=== PATIENT | female | born 1990 | race Caucasian/White ===

== ENCOUNTER → 2016-12-19 | Outpatient (CLI) | payer OTHER ==
--- NOTE | 2016-12-20 11:17 | US ---
EXAMINATION TYPE: US pelvic complete DATE OF EXAM: 12/19/2016 4:37 PM COMPARISON: NONE CLINICAL HISTORY: Pelvic Pain R10.2, Z97.[address] TECHNIQUE: Transabdominal (TA) Date of LMP: 12/13/2016 EXAM MEASUREMENTS: Uterus: 6.9 x 3.6 x 5.4 cm Endometrial Stripe: 0.5 cm Right Ovary: 2.9 x 2.5 x 1.9 cm Left Ovary: 2.7 x 2.4 x 2.6 cm 1. Uterus: Anteverted wnl 2. Endometrium: IUD appears in place 3. Right Ovary: wnl 4. Left Ovary: wnl 5. Bilateral Adnexa: wnl 6. Posterior cul-de-sac: trace amount IMPRESSION: 1. IUD within the endometrial canal. 2. Normal pelvic ultrasound.
== END ==
LOC: RADUSWWP 16:21
PROVIDERS: ATTEND Obstetrics & Gynecology
DX: R10.2 Pelvic and perineal pain (principal); Z97.5 Presence of (intrauterine) contraceptive device
CPT/HCPCS: 76856

== ENCOUNTER 2017-06-15 08:22 | Day surgery (SDC) | payer OTHER ==
[2017-06-12 15:56] VITALS: BMI 22.3
--- NOTE | 2017-06-15 08:00 | P.HPOB ---
History of Present Illness H&P Date: 06/15/17 Chief Complaint: Family planning Elbert is a 26-year-old who has completed her family planning and desires permanent sterilization. Risks/benefits alternatives to this procedure were discussed with the patient in detail and all questions were answered for her prior to proceeding to the operative room. She is here for laps up tubal occlusion Filshie clips and will plan to remove her IUD at the same time. On physical exam vital signs are stable and afebrile. Heart regular, lungs clear, extremities without pain. Osteopathic exams unremarkable. Abdomen soft nontender positive bowel sounds are noted. Assessment family planning. Plan laparoscopic tubal occlusion with Filshie clips. Past Medical History Past Medical History: No Reported History History of Any Multi-Drug Resistant Organisms: None Reported Past Surgical History: No Surgical Hx Reported Past Anesthesia/Blood Transfusion Reactions: No Reported Reaction Additional Past Anesthesia/Blood Transfusion Reaction / Comment(s): no blood transfusion hx.no hx of general anesthesia Smoking Status: Current every day smoker - Past Family History Brother(s) Family Medical History: Asthma Medications and Allergies Home Medications Medication Instructions Recorded Confirmed Type Acetaminophen Tab [Tylenol] 500 mg PO Q4H PRN 09/03/15 06/12/17 History Ibuprofen [Motrin] 200 - 600 mg PO Q6HR PRN 06/12/17 06/12/17 History Allergies Allergy/AdvReac Type Severity Reaction Status Date / Time No Known Allergies Allergy Verified 06/12/17 15:50 Exam Osteopathic Statement: *. No significant issues noted on an osteopathic structural exam other than those noted in the History and Physical/Consult.
[~2017-06-15 08:22] MED LIST: DEXAMETHASONE SOD PHOSPHATE 10 MG/ML 1 ML VIAL IV ONE; LACTATED RINGERS 1,000 ML IV SCH; LIDOCAINE 1% 20 ML VIAL (10MG/ML) FOR IV START INTRADERMA PRN; MIDAZOLAM 2 MG/2 ML VIAL IV PRN; Pre Op ABX Message 1 EACH MISC MISCELLANE ONE; SCOPOLAMINE 1.5MG/72HR PATCH TRANSDERM ONE
[2017-06-15] MEDS: ONDANSETRON 4 MG/2 ML VIAL IVP ONE ×2 (09:05→11:50)
[2017-06-15] MEDS ORDERED: GLYCOPYRROLATE 0.2 MG/ML 2 ML VIAL ONE (09:27)
[2017-06-15] MEDS ORDERED: MIDAZOLAM 2 MG/2 ML VIAL ONE (09:27)
[2017-06-15] MEDS ORDERED: NEOSTIGMINE 1 MG/ML 10 ML VIAL ONE (09:27)
[2017-06-15] MEDS ORDERED: fentaNYL (PF) 50 MCG/ML 2 ML AMP ONE (09:27)
[2017-06-15] MEDS ORDERED: LIDOCAINE 1% INJ 10MG/ML (20 ML MDV) ONE (09:27)
[2017-06-15] MEDS ORDERED: SUCCINYLCHOLINE CHLORIDE 100 MG/5 ML SYR IV ONE (09:27)
[2017-06-15] MEDS ORDERED: PROPOFOL 10 MG/ML 20 ML VIAL IV ONE (09:27)
[2017-06-15] MEDS ORDERED: ROCURONIUM BROMIDE 10 MG/ML 10 ML VIAL IV ONE (09:27)
[2017-06-15] MEDS ORDERED: BUPIVACAINE (PF) 0.25% 30 ML VIAL SQ ONE ×3 (09:34→09:46)
[2017-06-15] MEDS ORDERED: LACTATED RINGERS 1,000 ML IV ONE (09:59)
--- NOTE | 2017-06-15 10:04 | P.OP ---
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 Fallopian tubes appeared normal. There is evidence of Mason Grimaldo Lincoln scarring on liver. Appendix and uterus otherwise grossly are normal. Description of Procedure: Patient was taken to the operating suite where a general anesthetic was found be adequate. She was prepped and draped in the normal sterile fashion and placed in dorsal lithotomy position. Initially a speculum was inserted into the vagina and the anterior lip of the cervix was grasped with an Allis clamp. Mirena IUD was removed then uterus was sounded to 7.5 cm and a manipulator was inserted without difficulty. Speculum and Allis clamp were removed and red rubber catheter was used to drain the bladder of urine. Once this was accomplished, gloves were changed and attention was turned to the abdominal portion of the procedure. Approximately 2 mL of quarter percent Marcaine was then injected periumbilically and through this injected anesthetic a 5 mm skin incision was made. Through this incision under direct visualization with an optical trocar and sleeve the camera was inserted. Once peritoneal placement was assured gas was allowed to fully insufflate the abdomen and patient was placed in steep Trendelenburg position. A second 8 mm skin incision was then made 3 cm above the pubic symphysis in the midline. Through this incision an 8 mm port and sleeve were inserted and observations the pelvis were noted as above. There was significant evidence of old PID infection with scarring of both ovaries to the lateral wall these were filmy and as she was not having any problems with them they were left alone. It is also noted that she had Mason- Yobany Lincoln adhesions on the liver. Again as this was not causing her any problems was no reason to excise the adhesions. She has no evidence of current pelvic inflammatory disease. Uterus and tubes otherwise appeared normal. At this point both the right tube than left tube had a Filshie clip applied 2 cm from uterine cornu. With no bleeding noted from the mesosalpinx instruments were then removed and gas was allowed to expel from the abdomen. There is also an incidental note of a small peritoneal defect where the right round ligament entered the abdomen. While gas was expelled from the abdomen 5 deep breaths were provided. 4-0 Vicryl was then used to close the the incisions subcuticularly. The remaining 8 mL of quarter percent Marcaine were then injected around these incisions. All instruments were then removed as was the manipulator. Sponge, lap, needle counts were all correct 2. Patient was then taken to the recovery room in stable and satisfactory condition. Plan - Discharge Summary New Discharge Prescriptions: New Ibuprofen [Motrin] 600 mg PO Q6HR PRN #30 tab PRN Reason: Pain No Action Acetaminophen Tab [Tylenol] 500 mg PO Q4H PRN PRN Reason: Pain Ibuprofen [Motrin] 200 - 600 mg PO Q6HR PRN PRN Reason: Pain Discharge Medication List Acetaminophen Tab [Tylenol] 500 mg PO Q4H PRN 09/03/15 [History] Ibuprofen [Motrin] 200 - 600 mg PO Q6HR PRN 06/12/17 [History] Ibuprofen [Motrin] 600 mg PO Q6HR PRN #30 tab 06/15/17 [Rx] Follow up Appointment(s)/Referral(s): Rayo Nelson DO [Doctor of Osteopathic Medicine] - 1 Week Activity/Diet/Wound Care/Special Instructions: No heavy lifting today, limit stairs and driving. Pelvic rest. If any high temperatures, heavy bleeding, or severe pain call my office Discharge Disposition: HOME SELF-CARE
[2017-06-15 10:23] VITALS: TEMP 97.3
[2017-06-15] MEDS: HYDROmorphone 1 MG/ML 1 ML SYRINGE IVP PRN ×2 (10:29→10:39)
[2017-06-15 10:42] VITALS: RESP 16
[2017-06-15] MEDS ORDERED: KETOROLAC 30 MG/ML 1 ML VIAL IVP ONE (11:55)
[2017-06-15 12:37] VITALS: BP 106/65; PULSE 57
== END 2017-06-15 13:18 | disposition home or self-care (01) ==
LOC: OR 08:22
PROVIDERS: ATTEND Obstetrics & Gynecology
DX: Z30.2 Encounter for sterilization (principal); Z30.432 Encounter for removal of intrauterine contraceptive device; N73.9 Female pelvic inflammatory disease, unspecified; K66.0 Peritoneal adhesions (postprocedural) (postinfection); F17.200 Nicotine dependence, unspecified, uncomplicated
CPT/HCPCS: 58671; 58301; 81025; J2250; J1100; J2710; J2405; J2001; J3010; J1885; J1170; J0330; J2704

== ENCOUNTER 2018-07-23 12:24 | Emergency (ER) | payer OTHER ==
[2018-07-23 12:52] VITALS: TEMP 98.4
--- NOTE | 2018-07-23 15:00 | ED ---
General Adult HPI - General Chief complaint: Urogenital Stated complaint: female gu Time Seen by Provider: 07/23/18 13:38 Source: patient, RN notes reviewed Mode of arrival: ambulatory Limitations: no limitations - History of Present Illness Initial comments: 27-year-old female presents to the emergency department for a chief complaint of foreign body in the vagina. Patient states she was on the toilet this morning when a tampon fell out of her vagina. Patient states he had a foul smell to it. She states that she last had a period about one month ago and believes it has been in there since that time. Patient denies any fevers or chills. She had one episode of cramping yesterday but denies any other abdominal pain. She denies any rashes. Patient denies any feelings of being unwell. She denies any significant vaginal discharge. Patient has no other complaints at this time including shortness of breath, chest pain, abdominal pain, nausea or vomiting, headache, or visual changes. - Related Data Home Medications Medication Instructions Recorded Confirmed Acetaminophen Tab [Tylenol] 1,000 mg PO Q6H PRN 09/03/15 07/23/18 Citalopram Hydrobromide [CeleXA] 20 mg PO DAILY 07/23/18 07/23/18 clonazePAM [KlonoPIN] 0.5 mg PO DAILY 07/23/18 07/23/18 Allergies Allergy/AdvReac Type Severity Reaction Status Date / Time No Known Allergies Allergy Verified 07/23/18 13:22 Review of Systems ROS Statement: Those systems with pertinent positive or pertinent negative responses have been documented in the HPI. ROS Other: All systems not noted in ROS Statement are negative. Past Medical History Past Medical History: No Reported History History of Any Multi-Drug Resistant Organisms: None Reported Past Surgical History: No Surgical Hx Reported Past Anesthesia/Blood Transfusion Reactions: No Reported Reaction Past Psychological History: No Psychological Hx Reported Smoking Status: Former smoker Past Alcohol Use History: None Reported - Past Family History Brother(s) Family Medical History: Asthma General Exam Limitations: no limitations General appearance: alert, in no apparent distress Head exam: Present: atraumatic, normocephalic, normal inspection Eye exam: Present: normal appearance, PERRL, EOMI. Absent: scleral icterus, conjunctival injection, periorbital swelling ENT exam: Present: normal exam, mucous membranes moist Neck exam: Present: normal inspection, full ROM. Absent: tenderness, meningismus, lymphadenopathy Respiratory exam: Present: normal lung sounds bilaterally. Absent: respiratory distress, wheezes, rales, rhonchi, stridor Cardiovascular Exam: Present: regular rate, normal rhythm, normal heart sounds. Absent: systolic murmur, diastolic murmur, rubs, gallop, clicks GI/Abdominal exam: Present: soft, normal bowel sounds. Absent: distended, tenderness, guarding, rebound, rigid External exam: Present: normal external exam Speculum exam: Present: normal speculum exam. Absent: erythema, vaginal discharge, cervical discharge, vaginal bleeding, foreign body (No remaining foreign body evident in vaginal canal at this time.), tissue, laceration By manual exam: Present: normal by manual exam. Absent: cervical motion tenderness, adnexal tenderness, adnexal mass, uterine enlargement, uterine tenderness Neurological exam: Present: alert, oriented X3, CN II-XII intact Psychiatric exam: Present: normal affect, normal mood Course Vital Signs 07/23/18 07/23/18 12:50 15:30 Temperature 98.4 F Pulse Rate 61 58 L Respiratory 16 18 Rate Blood Pressure 100/41 116/73 O2 Sat by Pulse 98 99 Oximetry Medical Decision Making - Medical Decision Making 27-year-old female presents to the emergency department for a chief complaint of foreign body in the vagina. Patient states that a tampon fell out of her vagina earlier today. She denies any abdominal pain, vaginal discharge, fevers , rashes. Patient's vitals are normal. She is well appearing. She is afebrile. Pelvic exam revealed no other retained foreign bodies. No significant vaginal discharge. No tenderness within the vagina. Cervix appears within normal limits. At this time patient is well-appearing and safe for discharge home with follow-up to primary care. Discussed the patient to return if she has fevers or worsening abdominal pain or any other worsening symptoms. Patient agrees with this. Discussed case with Dr. Valdez. - Lab Data Lab Results 07/23/18 Range/Units 15:27 Trichomonas Ag (Rapid) Negative (Negative) Disposition Clinical Impression: Foreign body in vagina Disposition: HOME SELF-CARE Condition: Good Instructions: Vaginal Foreign Body (ED) Additional Instructions: Please follow up with primary care in 1-2 days. Return if you have any worsening symptoms such as fevers or abdominal pain. Is patient prescribed a controlled substance at d/c from ED?: No Referrals: Chelita Scanlon MD [Primary Care Provider] - 1-2 days Time of Disposition: 15:02
[2018-07-23 15:31] VITALS: BP 116/73; PULSE 58; RESP 18
[2018-07-25 14:10] LABS: C. trachomatis,PCR Negative (Neg,Equiv); Chlamydia trachomatis Source Vagina; N. gonorrhoeae,PCR Negative (Neg,Equiv); Neisseria Source Vagina
== END 2018-07-23 15:30 | disposition home or self-care (01) ==
LOC: EC 12:24
DX: T19.2XXA Foreign body in vulva and vagina, initial encounter (principal); Z79.899 Other long term (current) drug therapy; Z87.891 Personal history of nicotine dependence
CPT/HCPCS: 87491; 87591; 87808; 99283

== ENCOUNTER 2020-10-21 15:49 | Emergency (ER) | payer OTHER ==
[2020-10-21 16:10] VITALS: BP 96/55; PULSE 86; RESP 18; TEMP 99.2
--- NOTE | 2020-10-21 16:57 | XR ---
EXAMINATION TYPE: XR foot complete RT DATE OF EXAM: 10/21/2020 COMPARISON: NONE HISTORY: Foot pain TECHNIQUE: 3 views FINDINGS: Metatarsals are intact. I see no fracture nor dislocation. IMPRESSION: Negative right foot exam. No fracture seen.
--- NOTE | 2020-10-21 16:57 | XR ---
EXAMINATION TYPE: XR ankle complete RT DATE OF EXAM: 10/21/2020 COMPARISON: NONE HISTORY: Pain TECHNIQUE: 3 views FINDINGS: Ankle mortise is anatomic. I see no fracture nor dislocation. Joint spaces are normal. IMPRESSION: Negative right ankle exam.
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
== END 2020-10-21 17:17 | disposition home or self-care (01) ==
LOC: EC 15:49
DX: M79.671 Pain in right foot (principal); M25.571 Pain in right ankle and joints of right foot; F32.9 Major depressive disorder, single episode, unspecified; F41.9 Anxiety disorder, unspecified; F17.200 Nicotine dependence, unspecified, uncomplicated
CPT/HCPCS: 99283

== ENCOUNTER → 2022-05-06 | Outpatient (CLI) | payer OTHER ==
[2022-05-07 00:51] LABS: Basophils # (A) 0.02 X 10*3/uL (0.00-0.10); Basophils % (A) 0.3 %; Eosinophils # (A) 0.06 X 10*3/uL (0.04-0.35); HCT 39.1 % (37.2-46.3); HGB 13.3 g/dL (12.0-15.0); Immature Grans, Automated 0.2 %; Lymphocytes # (A) 1.49 X 10*3/uL (0.90-5.00); Lymphocytes % (A) 24.3 %; MCH 32.8 pg (27.0-32.0); MCV 96.5 fL (80.0-97.0); Mean Platelet Volume 11.2 fL (9.5-12.2); Monocytes # (A) 0.55 X 10*3/uL (0.20-1.00); NRBC Per 100 WBC 0 /100 WBCS (0.0-0.0); Neutrophils # (A) 4.01 X 10*3/uL (1.80-7.70); Neutrophils % (A) 65.2 %; Platelet Count 216 X 10*3/uL (140-440); RBC 4.05 X 10*6/uL (4.10-5.20); RDW 12.1 % (11.5-14.5); WBC 6.14 X 10*3/uL (4.50-10.00)
== END | disposition home or self-care (01) ==
LOC: LABPAT 14:42
PROVIDERS: ATTEND Obstetrics & Gynecology
DX: Z01.812 Encounter for preprocedural laboratory examination (principal); R87.613 High grade squamous intraepithelial lesion on cytologic smear of cervix (HGSIL)
CPT/HCPCS: 85025

== ENCOUNTER 2022-05-10 07:43 | Day surgery (SDC) | payer OTHER ==
[2022-05-05 14:53] VITALS: BMI 20.9
[~2022-05-10 07:43] MED LIST changes: -DEXAMETHASONE SOD PHOSPHATE 10 MG/ML 1 ML VIAL IV ONE; +DEXAMETHASONE SOD PHOSPHATE 4 MG/ML 1 ML VIAL IV ONE; +HYDROmorphone 0.5 MG/0.5 ML SYRINGE IVP PRN; -LIDOCAINE 1% 20 ML VIAL (10MG/ML) FOR IV START INTRADERMA PRN; -MIDAZOLAM 2 MG/2 ML VIAL IV PRN; +ONDANSETRON 4 MG/2 ML VIAL IVP ONE; -SCOPOLAMINE 1.5MG/72HR PATCH TRANSDERM ONE
[2022-05-10] MEDS ORDERED: LIDOCAINE 2% INJ 20 MG/ML (2 ML VIAL) ONE (08:58)
[2022-05-10] MEDS ORDERED: MIDAZOLAM 2 MG/2 ML VIAL ONE (08:58)
[2022-05-10] MEDS ORDERED: PROPOFOL 10 MG/ML 20 ML VIAL IV ONE (08:58)
[2022-05-10] MEDS ORDERED: KETOROLAC 15 MG/ML 1 ML VIAL ONE (08:58)
[2022-05-10] MEDS ORDERED: fentaNYL (PF) 50 MCG/ML 2 ML AMP ONE (08:58)
[2022-05-10] MEDS ORDERED: FERRIC SUBSULFATE (MONSELS) JAR TOPICAL ONE (09:19)
[2022-05-10] MEDS ORDERED: VASOPRESSIN 20 UNIT/ML 1 ML VIAL IM ONE (09:19)
[2022-05-10] MEDS ORDERED: IODINE/POTASS IOD (LUGOLS) BOTTLE TOPICAL ONE (09:19)
[2022-05-10] MEDS ORDERED: ACETIC ACID 15 DROPS/ML DROPS MISCELLANE ONE (09:19)
--- NOTE | 2022-05-10 09:42 | P.OP ---
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 Urine hCG is negative. The appropriate timeout is performed to assure proper patient and procedural identification after thorough prepping of the cervix, vagina, perineal bodies is performed. Bladder is drained for approximately 150 mL of clear yellow urine. Weighted speculum was placed into the vagina. Anterior lip of the cervix is grasped with an Allis clamp. Stay sutures are placed using 0 Vicryl for hemostatic purposes, first stitch placed from 2:00 to 4:00, tied and held with a hemostat, second stitch placed from 10:00 to 8:00, tied and again held with a hemostat. A dilute Pitressin solution is then used to inject the cervix at 2:00 4:00 8:00 and 10:00, a total of 10 mL is used. A scalpel is then used to remove a large conization specimen with care to completely remove the 11:00 portion. This is sutured tagged at 12:00 and sent to pathology. Kevorkian curette is then used and a thorough endocervical curettage is performed, again sent to pathology. Cauterization is now used with a ball-tipped to cauterize the entire periphery as well as base of the conization specimen. Hemostasis is excellent. Monsel solution is then also placed with a Nguyen wand. The stay sutures are removed. All sponge needle and enhancement counts are correct. Toradol is given prior to leaving the operative suite. Patient is brought to the recovery room in excellent condition with stable vital signs including blood pressure 95/50, pulse 45. She will follow-up with me in the office in 2 weeks, written instructions are provided.
[2022-05-10 09:54] VITALS: TEMP 97
[2022-05-10 10:00] VITALS: RESP 16
[2022-05-10] MEDS ORDERED: LACTATED RINGERS 1,000 ML IV ONE (11:08)
[2022-05-10 11:35] VITALS: BP 112/55; PULSE 46
== END 2022-05-10 11:56 | disposition home or self-care (01) ==
LOC: OR 07:43
PROVIDERS: ATTEND Obstetrics & Gynecology
DX: N84.0 Polyp of corpus uteri (principal); N87.9 Dysplasia of cervix uteri, unspecified; F17.200 Nicotine dependence, unspecified, uncomplicated; F41.9 Anxiety disorder, unspecified; F31.9 Bipolar disorder, unspecified; F60.3 Borderline personality disorder; J45.909 Unspecified asthma, uncomplicated; R01.1 Cardiac murmur, unspecified; Z98.51 Tubal ligation status; Z80.3 Family history of malignant neoplasm of breast; Z98.890 Other specified postprocedural states; Z80.8 Family history of malignant neoplasm of other organs or systems; Z82.2 Family history of deafness and hearing loss; Z83.3 Family history of diabetes mellitus
CPT/HCPCS: 57520; 81025; 88305; 88307; J2250; J1100; J2405; J3010; J1885; J2704; J2001